=== PATIENT | female | born 1985 | race Two or more races ===

== ENCOUNTER 2017-08-21 09:53 | Day surgery (SDC) | payer OTHER ==
[~2017-08-21 09:53] MED LIST: Buffered Lidocaine 0.9% SYRIN* 5 ML/SYR SYRINGE INTRADERM ONE; Famotidine IV* 10 MG/ML 2 ML (20 mg) IV ONE
[2017-08-21] MEDS ORDERED: Famotidine IV* 10 MG/ML 2 ML (20 mg) ONE (10:14)
[2017-08-21] MEDS ORDERED: Buffered Lidocaine 0.9% SYRIN* 5 ML/SYR SYRINGE ONE (10:14)
[2017-08-21 10:54] LABS: Hematocrit 33 % (35-47); Hemoglobin 10.7 g/dl (12.0-16.0); Mean Corpuscular HGB Conc 32 g/dl (31-36); Mean Corpuscular Hemoglobin 22 pg (27-31); Mean Corpuscular Volume 67 fL (80-97); Mean Platelet Volume 9 um3 (7.4-10.4); Platelet Count 247 10^3/ul (150-450); Red Blood Count 4.94 10^6/ul (4.0-5.4); Red Cell Distribution Width 17 % (10.5-15); White Blood Count 9.7 10^3/ul (3.5-10.8)
[2017-08-21] MEDS ORDERED: Acetaminophen TAB* 325 MG PO PRN (11:35)
[2017-08-21] MEDS ORDERED: DiMENhydriNATE IV* 50 MG/ML VIAL IV PUSH PRN (11:35)
[2017-08-21] MEDS ORDERED: Naloxone* 0.4 MG/ML 1 ML VIAL IV PRN (11:35)
[2017-08-21] MEDS ORDERED: Ketorolac INJ* 30 MG/ML 1 ML VIAL ONE (11:41)
[2017-08-21] MEDS ORDERED: Ondansetron INJ* 2 MG/ML VIAL ONE (11:41)
[2017-08-21] MEDS ORDERED: Midazolam* 1 MG/ML 2 ML VIAL (2 MG) ONE (11:42)
[2017-08-21] MEDS ORDERED: fentaNYL* 50 MCG/ML 2 ML VIAL (100 MCG VIAL) ONE (11:42)
[2017-08-21 11:45] LABS: ABS Basophils 0.1 10^3/ul (0-0.2); ABS Eosinophils 0.2 10^3/ul (0-0.6); ABS Lymphocytes 2.1 10^3/ul (1.0-4.8); ABS Monocytes 0.6 10^3/ul (0-0.8); ABS Neutrophils 6.8 10^3/ul (1.5-7.7); ABS Nucleated RBC 0 10^3/ul; Eosinophil % 1.6 % (0-6); Lymphocyte % 21.5 % (25-47); Nucleated Red Blood Cells % 0
[2017-08-21] MEDS ORDERED: ceFOXitin 2 GM IVPREMIX* 2 GM/50 ML BAG IVPB ONE (12:00)
[2017-08-21] MEDS ORDERED: Propofol* 10 MG/ML 20 ML BTL IV PUSH ONE (12:21)
[2017-08-21] MEDS ORDERED: Acetaminophen TAB* 325 MG ONE (13:10)
[2017-08-21 14:22] VITALS: BP 116/72
--- NOTE | 2017-08-22 15:00 | OP ---
DATE OF OPERATION: 08/21/17 - [facility] DATE OF : 81 SURGEON: Madeline Mcdaniel MD. UTILITY ACCOUNTS DIRECTOR: None. ANESTHESIOLOGIST: Dr. Caldwell. ANESTHESIA: Spinal with sedation and IV. PRE-OP DIAGNOSIS: Intrauterine mass. POST-OP DIAGNOSIS: Intrauterine mass, probable polyp. OPERATIVE PROCEDURE: Dilation, MyoSure hysteroscopic resection of polyp and curettage. ESTIMATED BLOOD LOSS: Minimal. URINE OUTPUT: 100 cc of clear yellow urine. FLUIDS: 1000 cc of crystalloid, deficit 50 cc. FINDINGS: Revealed an approximately 1 cm polyp extending from the right lateral uterine wall near the fundus, normal tubal ostia seen bilaterally. Normal appearing cervix. Post resection, uterine cavity free of intrauterine mass. COMPLICATIONS: None apparent. DISPOSITION: Stable to recovery room. DESCRIPTION OF PROCEDURE: The patient was placed into a supine position. The legs were placed in universal Jose Stirrups. The perineum and vagina were prepped and draped in a sterile standard fashion. The patient was identified with universal protocol for correct procedure, position, and patient. A self cath was inserted for drainage of clear yellow urine. Sterile speculum was inserted. Cervix was visualized and grasped from the anterior lip. An os finder was used initially and then the cervix was dilated to a #8 Hegar dilator. A hysteroscope was inserted. The uterine cavity was visualized and the polyp was noted to be extending from the right lateral uterine wall near the fundus. Tubal ostia was visualized on the left. At that point, the small MyoSure resection wand was used for complete resection of the endometrial polyp allowing visualization of the right tubal ostia. Hysteroscope was removed. Sharp curettage was performed. A single- tooth tenaculum was removed. Minimal bleeding was noted and tenaculum site was hemostatic. Sterile speculum was removed. The patient was taken out of dorsal lithotomy position, Creola Jose stirrups and then was taken to recovery room in stable condition. All sponge, instrument, and blade counts were correct throughout the case. The patient tolerated the procedure well. [id number]/[facility] #: [id number] MTDD
== END 2017-08-21 14:23 | disposition home or self-care (01) ==
LOC: OR 09:53
PROVIDERS: ATTEND Obstetrics & Gynecology
DX: N84.0 Polyp of corpus uteri (principal); K21.9 Gastro-esophageal reflux disease without esophagitis
CPT/HCPCS: 36415; 81025; 85025; 85060; 86850; 86900; 86901; 88305; A9270-GY; J0694; J1885; J2250; J2405; J2704; J3010

== ENCOUNTER 2019-10-15 13:55 | Emergency (ER) | payer OTHER ==
[2019-10-15 14:14] VITALS: BP 102/70
--- NOTE | 2019-10-15 14:20 | ED ---
Shortness of Breath - HPI Summary HPI Summary: This pt is a 34 Y/O F presenting to [facility] with a CC of increasing SOB that has been present intermittently since 10/07/2019. She states that she was in [facility] in September for iron infusions from her recreational therapy technician and became quarantined on the 18 of September. She states that her and their friends were quarantined as well. She received a CoVID-19 test which was positive. She states that since 10/07/2019 she has had intermittent symptoms of a low grade fever, productive cough, headache, and sore throat. She states that she has had worsening SOB and increased pain in her L back since the onset of her symptoms. She has no known aggravating or alleviating factors. She has a PMHx of Thalassemia. - History of Current Complaint Chief Complaint: EDShortnessOfBreath Time Seen by Provider: 10/15/19 13:58 Onset/Duration: Sudden Onset, Lasting Days - 8, Still Present Timing: Constant Current Severity: Moderate Dyspnea At: Rest Aggravating Factors: Nothing Alleviating Factors: Nothing Associated Signs & Symptoms: Cough (Productive), Fever - Allergy/Home Medications Allergies/Adverse Reactions: Allergies Allergy/AdvReac Type Severity Reaction Status Date / Time codeine Allergy GI Upset Verified 08/21/17 10:19 iodine Allergy Hives Verified 08/21/17 10:19 iohexol [From Omnipaque] Allergy Hives Verified 08/21/17 11:29 nickel Allergy Rash Verified 08/21/17 10:19 Home Medications: Home Medications Aspirin/Acetaminophen/Caffeine [Excedrin Migraine Caplet] 2 each PO ONCE PRN 01/20 [History Confirmed 08/21/17] Famotidine TAB* [Pepcid 20 MG TAB*] 20 mg PO QPM PRN 08/12/17 [History Confirmed 08/21/17] PMH/Surg Hx/FS Hx/Imm Hx Previously Healthy: Yes Endocrine/Hematology History: Reports: Hx Anemia - THALACEMIA Denies: Hx Diabetes Cardiovascular History: Reports: Other Cardiovascular Problems/Disorders - 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, RECENT TESTING DONE Denies: Hx Hypertension, Hx Pacemaker/ICD Respiratory History: Reports: Hx Sleep Apnea - HX OF- STATES RESOLVED AFTER LEFT HAND SURGERY GI History: Reports: Hx Gastroesophageal Reflux Disease - PRN MEDICATION FOR History: Denies: Hx Renal Disease Musculoskeletal History: Comment Only: Other Musculoskeletal History - CHONDROMALASIA PATELLA LEFT KNEE Sensory History: Reports: Hx Contacts or Glasses - INSTRUCTS GIVEN Denies: Hx Hearing Aid Opthamlomology History: Reports: Hx Contacts or Glasses - INSTRUCTS GIVEN Neurological History: Reports: Hx Headaches, Hx Migraine - HX OF -TREATS WITH FLUIDS AND EXCEDRIN Psychiatric History: Reports: Hx Anxiety, Hx Eating Disorder - ANOREXIA, BULEMIA TILL 17 YRS OF AGE, Hx Depression - HX OF-NO MEDICATION FOR Denies: Hx Panic Disorder - Cancer History Hx Chemotherapy: No Hx Radiation Therapy: No - Surgical History Surgical History: Yes Surgery Procedure, Year, and Place: D & C; 1988 [place]OMY[place]. 2003 LAP BAND Hx Anesthesia Reactions: No - WAKES UP VERY COLD-AND OFTEN IS VERY SHAKY WHILE WAKING UP - Immunization History Immunizations Up to Date: Yes Infectious Disease History: Yes Infectious Disease History: Denies: Hx Clostridium Difficile, Hx Hepatitis, Hx Human Immunodeficiency Virus (HIV), Hx Shingles, Hx Tuberculosis, History Other Infectious Disease, Traveled Outside the [place] in Last 30 Days - Family History Known Family History: Positive: Other - thalassemia - Social History Occupation: Employed Full-time Lives: With Family Alcohol Use: Occasionally Hx Substance Use: No Substance Use Type: Reports: None Hx Tobacco Use: No Smoking Status (MU): Never Smoked Tobacco Review of Systems Positive: Fever Positive: Sore Throat Positive: Shortness Of Breath, Cough - productive Positive: Other - L back pain Positive: Headache All Other Systems Reviewed And Are Negative: Yes Physical Exam - Summary Physical Exam Summary: Constitutional: Well-developed, Well-nourished, Alert. (-) Distressed Skin: Warm, Dry HENT: Normocephalic; Atraumatic Eyes: Conjunctiva normal Neck: Musculoskeletal ROM normal neck. (-) JVD, (-) Stridor, (-) Tracheal deviation Cardio: Rhythm regular, rate normal, Heart sounds normal; Intact distal pulses; The pedal pulses are 2+ and symmetric. Radial pulses are 2+ and symmetric. (-) Murmur Pulmonary/Chest wall: Effort normal. (-) Respiratory distress, (-) Wheezes, (-) Rales, able to speak in full sentences and is sating at 100% on room air. Abd: Soft, (-) tenderness, (-) Distension, (-) Guarding, (-) Rebound Musculoskeletal: (-) Edema Lymph: (-) Cervical adenopathy Neuro: Alert, Oriented x3 Psych: Mood and affect Normal Triage Information Reviewed: Yes Vital Signs On Initial Exam: Initial Vitals Temp Pulse Resp BP Pulse Ox 98.7 F 60 18 102/70 98 10/15/19 14:11 10/15/19 14:11 10/15/19 14:11 10/15/19 14:11 10/15/19 14:11 Vital Signs Reviewed: Yes Procedures - Sedation Patient Received Moderate/Deep Sedation with Procedure: No Diagnostics - Vital Signs Vital Signs Temp Pulse Resp BP Pulse Ox 10/15/19 14:11 98.7 F 60 18 102/70 98 - Laboratory Lab Statement: Any lab studies that have been ordered have been reviewed, and results considered in the medical decision making process. Course/Dx - Course Course Of Treatment: Patient is here with worsening shortness of breath in the setting of Covid 19. Patient was tested on the seventh which came back positive. Upon arrival here, patient was not in respiratory distress and was satting 100% on room air. The discussion was had with patient about receiving a chest x-ray and putting the x-ray tech at risk and we decided together to not get a chest x-ray at this time given her normal sats and well appearance. Patient was comfortable with this. Patient was encouraged to take Tylenol for pain, soak in the bathtub for her body aches, and sleep prone if possible - Diagnoses Provider Diagnoses: SOB (shortness of breath), COVID-19, Cough Discharge ED - Sign-Out/Discharge Documenting (check all that apply): Patient Departure - discharge - Discharge Plan Condition: Stable Disposition: HOME Patient Education Materials: Viral Pneumonia (ED) Forms: COVID-19 Tested & Isolation Referrals: [facility] [facility] [Outside] No Primary Care Phys,NOPCP [Primary Care Provider] - Additional Instructions: Your oxygen level is 100% here Please continue to isolate at home and follow the department of health's advice Please take Tylenol for pain, soak in warm baths with lavender. If you are feeling short of breath at home, try lying on your stomach and breathing. It is also a good idea to sleep on your stomach if possible Please return immediately if you have: -Severe shortness of breath -You cannot speak in full sentences -Any other concerning symptoms - Billing Disposition and Condition Condition: STABLE Disposition: Home - Attestation Statements Document Initiated by Mariel: Yes Documenting Scribe: Rip العلي Provider For Whom Mariel is Documenting (Include Credential): Shun Cintron MD Scribe Attestation: IRip, scribed for Shun Cintron MD on 10/15/19 at 1727. Scribe Documentation Reviewed: Yes Provider Attestation: The documentation as recorded by the Rip roberts accurately reflects the service I personally performed and the decisions made by me, Shun Cintron MD Status of Scribe Document: Viewed
== END 2019-10-15 14:23 | disposition home or self-care (01) ==
LOC: ED 13:55
DX: U07.1 COVID-19 (principal); R06.02 Shortness of breath; R05 Cough; R50.9 Fever, unspecified; J02.9 Acute pharyngitis, unspecified; Z88.6 Allergy status to analgesic agent; I45.6 Pre-excitation syndrome; Z98.84 Bariatric surgery status
CPT/HCPCS: 99281

== ENCOUNTER 2019-10-18 13:11 | Emergency (ER) | payer OTHER ==
--- NOTE | 2019-10-18 13:16 | ED ---
Shortness of Breath - HPI Summary HPI Summary: This patient is a 34 y/o female, COVID-19 positive, presenting to [facility] c/o shortness of breath for the last couple of days. Patient states she was tested for COVID-19 on 10/11/19 and her results came back positive on 10/14/19. Patient reports she had been doing well with no fevers. In the last couple of days patient has been short of breath with mild exertion, even with just walking or talking. Patient also reports dry nonproductive cough, nausea, and vomiting. She states nausea and vomiting with just drinking water. Denies diarrhea, constipation, chest pain, fever. Home Medications Medication Instructions Recorded Confirmed Type Sertraline* [Zoloft*] 50 mg PO DAILY 10/18/19 10/18/19 History - History of Current Complaint Time Seen by Provider: 10/18/19 13:14 Hx Obtained From: Patient Onset/Duration: Lasting Days, Still Present Current Severity: Mild Dyspnea At: Exertion Aggravating Factors: Movement, Other - speaking Alleviating Factors: Nothing Associated Signs & Symptoms: Cough (Nonproductive) - Allergy/Home Medications Allergies/Adverse Reactions: Allergies Allergy/AdvReac Type Severity Reaction Status Date / Time codeine Allergy GI Upset Verified 10/18/19 14:13 iodine Allergy Hives Verified 10/18/19 14:13 iohexol [From Omnipaque] Allergy Hives Verified 10/18/19 14:13 nickel Allergy Rash Verified 10/18/19 14:13 Home Medications: Home Medications Ondansetron ODT TAB* [Zofran 4 MG Odt TAB*] 4 mg PO Q8H PRN #10 tab.odt [Rx] Sertraline* [Zoloft*] 50 mg PO DAILY 10/18/19 [History Confirmed 10/18/19] PMH/Surg Hx/FS Hx/Imm Hx Endocrine/Hematology History: Reports: Hx Anemia - THALACEMIA Denies: Hx Diabetes Cardiovascular History: Reports: Other Cardiovascular Problems/Disorders - 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, RECENT TESTING DONE Denies: Hx Hypertension, Hx Pacemaker/ICD Respiratory History: Reports: Hx Sleep Apnea - HX OF- STATES RESOLVED AFTER LEFT HAND SURGERY GI History: Reports: Hx Gastroesophageal Reflux Disease - PRN MEDICATION FOR History: Denies: Hx Renal Disease Musculoskeletal History: Comment Only: Other Musculoskeletal History - CHONDROMALASIA PATELLA LEFT KNEE Sensory History: Reports: Hx Contacts or Glasses - INSTRUCTS GIVEN Denies: Hx Hearing Aid Opthamlomology History: Reports: Hx Contacts or Glasses - INSTRUCTS GIVEN Neurological History: Reports: Hx Headaches, Hx Migraine - HX OF -TREATS WITH FLUIDS AND EXCEDRIN Psychiatric History: Reports: Hx Anxiety, Hx Eating Disorder - ANOREXIA, BULEMIA TILL 17 YRS OF AGE, Hx Depression - HX OF-NO MEDICATION FOR Denies: Hx Panic Disorder - Cancer History Hx Chemotherapy: No Hx Radiation Therapy: No - Surgical History Surgery Procedure, Year, and Place: D & C; 1988 [place]IL[place]OMY- [place]. 2003 [place] BAND Hx Anesthesia Reactions: No - WAKES UP VERY COLD-AND OFTEN IS VERY SHAKY WHILE WAKING UP Infectious Disease History: Denies: Hx Clostridium Difficile, Hx Hepatitis, Hx Human Immunodeficiency Virus (HIV), Hx Shingles, Hx Tuberculosis, History Other Infectious Disease, Traveled Outside the [place] in Last 30 Days - Family History Known Family History: Positive: Other - thalassemia - Social History Alcohol Use: Occasionally Hx Substance Use: No Substance Use Type: Reports: None Hx Tobacco Use: No Smoking Status (MU): Never Smoked Tobacco Review of Systems Negative: Fever Negative: Chest Pain Positive: Shortness Of Breath, Cough Positive: Vomiting, Nausea. Negative: Diarrhea, Other - NEGATIVE: constipation All Other Systems Reviewed And Are Negative: Yes Physical Exam - Summary Physical Exam Summary: VITAL SIGNS: Reviewed. GENERAL: Patient is a well-developed and nourished female who is lying comfortable in the stretcher. Patient is not in any acute respiratory distress. HEAD AND FACE: No signs of trauma. No ecchymosis, hematomas or skull depressions. No sinus tenderness. EYES: PERRLA, EOMI x 2, No injected conjunctiva, no nystagmus. EARS: Hearing grossly intact. Ear canals and tympanic membranes are within normal limits. MOUTH: Oropharynx within normal limits. NECK: Supple, trachea is midline, no adenopathy, no JVD, no carotid bruit, no c- spine tenderness, neck with full ROM. CHEST: Symmetric, no tenderness at palpation LUNGS: Coarse breath sounds bilaterally mostly on the left side. CVS: Regular rate and rhythm, S1 and S2 present, no murmurs or gallops appreciated. ABDOMEN: Soft, non-tender. No signs of distention. No rebound no guarding, and no masses palpated. Bowel sounds are normal. EXTREMITIES: FROM in all major joints, no edema, no cyanosis or clubbing. NEURO: Alert and oriented x 3. No acute neurological deficits. Speech is normal and follows commands. SKIN: Dry and warm Triage Information Reviewed: Yes Vital Signs Reviewed: Yes Procedures - Sedation Patient Received Moderate/Deep Sedation with Procedure: No Diagnostics - Laboratory Result Diagrams: 10/18/19 14:00 10/18/19 14:00 Lab Statement: Any lab studies that have been ordered have been reviewed, and results considered in the medical decision making process. - Radiology Chest XR Radiology Interpretation Completed By: Radiologist Summary of Radiographic Findings: IMPRESSION: No active cardiopulmonary disease is noted. Dr. Mejias has reviewed this report. - EKG 1345 Cardiac Rate: Bradycardia - at 52 bpm EKG Rhythm: Sinus Bradycardia Summary of EKG Findings: EKG at 1345 shows sinus bradycardia at a rate of [address] elevations. This EKG was interpreted and reviewed by ED physician. Re-Evaluation - Re-Evaluation First Eval Re-Evaluation Time: 15:28 Comment: Reviewed results with patient. She reports she is nauseous and has not been drinking enough fluids. Will give Zofran. Second Eval Re-Evaluation Time: 16:35 Change: Improved Comment: Patient is feeling better after Zofran. Patient reports she was able to eat sandwich and drink gingerale without nausea or vomiting. Discharge plan was discussed with patient. Course/Dx - Course Assessment/Plan: This patient is a 34 y/o female, COVID-19 positive, presenting to [facility] c/o shortness of breath for the last couple of days. Patient states she was tested for COVID-19 on 10/11/19 and her results came back positive on . Patient reports she had been doing well with no fevers. In the last couple of days patient has been short of breath with mild exertion, even with just walking or talking. Patient also reports dry nonproductive cough, nausea, and vomiting. She states nausea and vomiting with just drinking water. Denies diarrhea, constipation, chest pain, fever. In the ED course the patient was placed in a desk monitor, IV access was obtained. Past medical records reviewed. CXR : no acute pathology. Blood test w/o a significant abnormality except for hemoglobin 11.8 which is her baseline since the patient has toxemia. After the medications the patient is feeling better. Patient is able to tolerate P.O w/o any nausea or vomiting. I discussed all the findings and test results with the patient. Patient was instructed to return to the emergency room immediately if any of the symptoms returns or worsens. Plan of care was discussed with the patient, and she understands and agrees. All questions were answered at patient satisfaction. There were no further complaints or concerns. Lung exam before discharge: CTA B/L. Good air exchange. No wheezing or crackles heard. CVS: S1 and S2 present. No murmurs appreciated. Patient is alert and oriented x 3. Patient is hemodynamically stable. Patient will be discharged home with follow up from her PCP in the next 2-3 days. - Diagnoses Provider Diagnoses: Shortness of breath, Nausea, COVID-19 - Critical Care Time Critical Care Statement: Critical care time is provided exclusive of any time spent performing procedures. Discharge ED - Sign-Out/Discharge Documenting (check all that apply): Patient Departure - Discharge home - Discharge Plan Condition: Stable Disposition: HOME Prescriptions: Ondansetron ODT TAB* [Zofran 4 MG Odt TAB*] 4 mg PO Q8H PRN #10 tab.odt PRN Reason: Nausea Patient Education Materials: Acute Nausea and Vomiting (ED), Shortness of Breath (ED), COVID-19 (Coronavirus Disease 2019) (ED) Referrals: [facility] [Outside] Additional Instructions: FOLLOW UP WITH YOUR PRIMARY CARE PROVIDER IN 2-3 DAYS. If you don't have one, please follow up with [facility]. RETURN TO THE EMERGENCY DEPARTMENT FOR ANY WORSENING OR NEW SYMPTOMS. - Billing Disposition and Condition Condition: STABLE Disposition: Home - Attestation Statements Document Initiated by Scribe: Yes Documenting Scribe: Tabatha Membreno Provider For Whom Mariel is Documenting (Include Credential): Arsenio Mejias MD Scribe Attestation: Tabatha Nation, scribed for Arsenio Mejias MD on 10/19/19 at 1225. Scribe Documentation Reviewed: Yes Provider Attestation: The documentation as recorded by the Tabatha roberts accurately reflects the service I personally performed and the decisions made by me, Arsenio Mejias MD Status of Scribe Document: Viewed
[2019-10-18 14:26] LABS: ABS Eosinophils 0.1 10^3/ul (0-0.6); ABS Lymphocytes 2.5 10^3/ul (1.0-4.8); ABS Monocytes 0.5 10^3/ul (0-0.8); ABS Neutrophils 2.4 10^3/ul (1.5-7.7); Eosinophil % 1.9 %; Hematocrit 37 % (35-47); Hemoglobin 11.8 g/dL (12.0-16.0); Lymphocyte % 45.2 %; Mean Corpuscular HGB Conc 32 g/dL (31-36); Mean Corpuscular Hemoglobin 21 pg (27-31); Mean Corpuscular Volume 67 fL (80-97); Mean Platelet Volume 9.3 fL (7.4-10.4); Nucleated Red Blood Cells % 0.1; Platelet Count 243 10^3/uL (150-450); Red Blood Count 5.54 10^6 /uL (3.70-4.87); Red Cell Distribution Width 16 % (10-15); White Blood Count 5.5 10^3/uL (3.5-10.8)
[2019-10-18 14:35] LABS: Albumin/Globulin Ratio 1.3 (1-3); BUN/Creatinine Ratio 14.3 (8-20); C Reactive Protein 1.78 mg/L (<8.01); Calcium 8.8 mg/dL (8.6-10.3); EGFR African American 92.8 (>60); EGFR Non-African American 76.7 (>60); Globulin 3.1 g/dL (2-4); Potassium 3.6 mmol/L (3.5-5.0); Total Bilirubin 0.4 mg/dL (0.2-1.0); Total Protein 7.1 g/dL (6.4-8.9)
[2019-10-18 14:40] LABS: CKMB ng/mL 0.4 ng/mL (0.6-6.3)
[2019-10-18 15:08] LABS: Activated Partial Thrombo Time 33.3 seconds (26.0-38.0); INR 0.97 (0.82-1.09)
[2019-10-18] MEDS ORDERED: Ondansetron ODT TAB* 4 MG SL ONE (15:33)
[2019-10-18 15:34] LABS: Microcytosis 3+
[2019-10-18] MEDS ORDERED: Ondansetron INJ* 2 MG/ML VIAL IV ONE (15:36)
[2019-10-18 16:45] VITALS: BP 107/79
== END 2019-10-18 16:59 | disposition home or self-care (01) ==
LOC: ED 13:11
DX: U07.1 COVID-19 (principal); R06.02 Shortness of breath; Z88.6 Allergy status to analgesic agent; Z86.79 Personal history of other diseases of the circulatory system; K21.9 Gastro-esophageal reflux disease without esophagitis; F41.9 Anxiety disorder, unspecified; R05 Cough; R11.2 Nausea with vomiting, unspecified
CPT/HCPCS: 36415; 71045; 80053; 82550; 82553; 83605; 83880; 84484; 85025; 85379; 85610; 85730; 86140; 87040; 93005; 96374; 99283; J2405